=== PATIENT | female | born 1980 | race Caucasian/White ===

== ENCOUNTER 2016-08-18 20:55 | Emergency (ER) | payer OTHER ==
[~2016-08-18] VITALS: Ht 154.9 cm; Wt 74.8 kg
[~2016-08-18 20:55] MED LIST: ASPIRIN LOW DOS81 MG PO; BENADRYL25 MG PO; BENTYL10 MG PO; DOXYCYCL HYC100 MG PO; FERR SULFATE325 MG PO; FLEXERIL OR; FLEXERIL PO; FLONASE NASAL50 MCG; GLYBURIDE2.5 MG PO; KEFLEX500 M1 PO; LORTAB 5 OR; LORTAB 7.5-3251 TAB PO; LORTAB5 OR; MACRODANTIN100 MG PO; MEDDOSEPAK PO; METO25TAB PO; METOPROL TAR25 MG PO; MOTRIN800 MG PO; MOTRIN800 MG/TAB PO; NO HOME MEDS; PERCOCET 5/325M1 TAB OR; PERIDEX0.12 % MT; PRE-NATAL PO; PREDNISONE10 MG PO; PRENATAL VITAMIN PO; SPRINTEC 2828 DAY PO; TOPROL XL25 MG PO; TRAMADOL HCL50 MG PO; XANAX0.25 MG PO; ZOFRAN4 M1 PO; ZPAK PO
[2016-08-18 22:53] LABS: HEMATOCRIT 36.2 % (37.0-47.0); HEMOGLOBIN 11.1 g/dl (12.0-16.0); IMMATURE GRANULOCYTES 0.5 % (0.0-1.0); MEAN CELL VOLUME 79.2 fL CALC (80.0-100.0); MEAN CORPUSCULAR HGB 24.3 pG CALC (26.0-32.0); MEAN CORPUSCULAR HGB CONC 30.7 g/L CALC (32.0-36.0); NEUT# 6.82 thou/uL (2.00-7.15); RED BLOOD COUNT 4.57 mill/uL (4.20-5.60); RED CELL DISTRI WIDTH 15.6 % (11.5-15.5)
[2016-08-18 22:56] LABS: URINE BILIRUBIN - DIPSTICK NEGATIVE (NEGATIVE); URINE BLOOD DIPSTICK NEGATIVE (NEGATIVE); URINE CLARITY CLEAR; URINE COLOR YELLOW; URINE GLUCOSE - DIPSTICK NEGATIVE (NEGATIVE); URINE KETONE NEGATIVE (NEGATIVE); URINE LEUK ESTERASE NEGATIVE (NEGATIVE); URINE NITRITE - DIPSTICK NEGATIVE (Negative); URINE PROTEIN - DIPSTICK NEGATIVE (NEG-TRACE); URINE SPECIFIC GRAVITY >=1.030; URINE UROBILINOGEN - DIPSTICK 0.2 E.U./dL (0.2)
[2016-08-18 23:10] LABS: ALBUMIN 4.5 g/dL (3.2-5.0); ALKALINE PHOSPHATASE 61 u/l (38-126); ANION GAP 16 (6-22 (CALC)); BILIRUBIN, TOTAL 0.6 mg/dL (0.0-1.4); BUN 11 mg/dL (7-17); BUN/CREATININE RATIO 16 (12-20 (CALC)); CALCIUM 9.4 mg/dL (8.4-10.2); CARBON DIOXIDE 28 mmol/l (22-30); CHLORIDE 102 mmol/l (95-108); CREATININE 0.7 mg/dL (0.5-1.0); GFR > 60 ML/MIN (>=60 (CALC)); GFR FOR AFR.AMER. > 60 ML/MIN (>=60 (CALC)); GLUCOSE 108 mg/dL (65-105); POTASSIUM 3.7 mmol/l (3.5-5.1); SGOT/AST 11 u/l (14-36); SGPT/ALT 18 u/l (9-52); SODIUM 142 mmol/l (137-146); TOTAL PROTEIN 7.2 g/dL (6.3-8.2)
[2016-08-19] MEDS ORDERED: ORPHENADRINE100 MG PO (01:01)
[2016-08-19] MEDS ORDERED: TRAMADOL HYDROC50 MG PO (01:01)
[2016-08-19 01:27] VITALS: BP 141/91
== END 2016-08-19 01:30 | disposition home or self-care (01) | DRG 563 ==
LOC: ED 20:55
PROVIDERS: Emergency Medicine
DX: S39.012A Strain of muscle, fascia and tendon of lower back, initial encounter (principal); I10 Essential (primary) hypertension; F41.9 Anxiety disorder, unspecified; G89.29 Other chronic pain; M54.9 Dorsalgia, unspecified; X58.XXXA Exposure to other specified factors, initial encounter

== ENCOUNTER 2016-11-05 21:55 | Emergency (ER) | payer OTHER ==
[~2016-11-05] VITALS: Ht 154.9 cm; Wt 72.4 kg
[~2016-11-05 21:55] MED LIST changes: +ORPHENADRINE100 MG PO; +TRAMADOL HYDROC50 MG PO
[2016-11-05] MEDS ORDERED: BUSPAR10 M1 PO (22:09)
[2016-11-05] MEDS ORDERED: XANAX0.5 MG PO (22:10)
[2016-11-05 22:50] LABS: HEMATOCRIT 35.3 % (37.0-47.0); IMMATURE GRANULOCYTES 0.3 % (0.0-1.0); MEAN CELL VOLUME 78.3 fL CALC (80.0-100.0); MEAN CORPUSCULAR HGB 24.4 pG CALC (26.0-32.0); MEAN CORPUSCULAR HGB CONC 31.2 g/L CALC (32.0-36.0); NEUT# 5.3 thou/uL (2.00-7.15); RED BLOOD COUNT 4.51 mill/uL (4.20-5.60); RED CELL DISTRI WIDTH 15.9 % (11.5-15.5)
[2016-11-05 22:59] LABS: ALBUMIN 4.5 g/dL (3.2-5.0); ALKALINE PHOSPHATASE 70 u/l (38-126); AMYLASE 117 u/l (30-110); ANION GAP 16 (6-22 (CALC)); BILIRUBIN, TOTAL 0.5 mg/dL (0.0-1.4); BUN 13 mg/dL (7-17); BUN/CREATININE RATIO 18 (12-20 (CALC)); CARBON DIOXIDE 27 mmol/l (22-30); CHLORIDE 105 mmol/l (95-108); CREATININE 0.7 mg/dL (0.5-1.0); GFR > 60 ML/MIN (>=60 (CALC)); GFR FOR AFR.AMER. > 60 ML/MIN (>=60 (CALC)); GLUCOSE 104 mg/dL (65-105); LIPASE 245 u/l (23-300); POTASSIUM 3.6 mmol/l (3.5-5.1); SGOT/AST 20 u/l (14-36); SGPT/ALT 27 u/l (9-52); SODIUM 144 mmol/l (137-146); TOTAL PROTEIN 7.8 g/dL (6.3-8.2)
[2016-11-06 00:23] LABS: URINE BILIRUBIN - DIPSTICK NEGATIVE (NEGATIVE); URINE BLOOD DIPSTICK LARGE (NEGATIVE); URINE CLARITY SLIGHT CLOUDY; URINE COLOR YELLOW; URINE GLUCOSE - DIPSTICK NEGATIVE (NEGATIVE); URINE KETONE NEGATIVE (NEGATIVE); URINE LEUK ESTERASE NEGATIVE (NEGATIVE); URINE NITRITE - DIPSTICK NEGATIVE (Negative); URINE PROTEIN - DIPSTICK NEGATIVE (NEG-TRACE); URINE UROBILINOGEN - DIPSTICK 0.2 E.U./dL (0.2)
[2016-11-06 00:29] LABS: COCAINE NEGATIVE (NEGATIVE); METHADONE NEGATIVE (NEGATIVE); TETRAHYDROCANNABIONOL NEGATIVE (NEGATIVE)
[2016-11-06 00:30] LABS: BARBITURATES NEGATIVE (NEGATIVE); OXCYCODONE NEGATIVE (NEGATIVE); TRICYLIC ANTIDEPRESSANTS NEGATIVE (NEGATIVE)
[2016-11-06 00:32] LABS: URINE BACTERIA FEW hpf; URINE RBC 50-100 RBC/hpf (0-5); URINE SQUAMOUS EPITHELIAL CELL MODERATE EPI/hpf (0-FEW)
[2016-11-06] MEDS ORDERED: ZOFRAN ODT4 MG PO (00:38)
[2016-11-06 01:04] VITALS: BP 136/82
== END 2016-11-06 01:03 | disposition home or self-care (01) | DRG 392 ==
LOC: ED 21:55
PROVIDERS: Emergency Medicine
DX: R10.11 Right upper quadrant pain (principal); I10 Essential (primary) hypertension; R11.0 Nausea; G89.29 Other chronic pain; M54.9 Dorsalgia, unspecified; F41.9 Anxiety disorder, unspecified

== ENCOUNTER 2016-12-20 20:16 | Emergency (ER) | payer OTHER ==
[~2016-12-20] VITALS: Ht 154.9 cm; Wt 70.0 kg
[~2016-12-20 20:16] MED LIST changes: +BUSPAR10 M1 PO; +XANAX0.5 MG PO; +ZOFRAN ODT4 MG PO
[2016-12-20] MEDS ORDERED: FLEXERIL PO (22:15)
[2016-12-20] MEDS ORDERED: LORTAB 10-325 M1 TAB PO (22:15)
[2016-12-20 22:17] VITALS: BP 138/72
== END 2016-12-20 22:24 | disposition home or self-care (01) | DRG 552 ==
LOC: ED 20:16
DX: M51.17 Intervertebral disc disorders with radiculopathy, lumbosacral region (principal); W18.31XA Fall on same level due to stepping on an object, initial encounter; Y92.009 Unspecified place in unspecified non-institutional (private) residence as the place of occurrence of the external cause

== ENCOUNTER 2017-06-24 23:04 | Emergency (ER) | payer OTHER ==
[~2017-06-24] VITALS: Ht 154.9 cm; Wt 74.2 kg
[~2017-06-24 23:04] MED LIST changes: +LORTAB 10-325 M1 TAB PO
[2017-06-25 00:19] LABS: URINE BILIRUBIN - DIPSTICK NEGATIVE (NEGATIVE); URINE BLOOD DIPSTICK SMALL (NEGATIVE); URINE CLARITY SL CLOUDY; URINE COLOR YELLOW; URINE GLUCOSE - DIPSTICK NEGATIVE (NEGATIVE); URINE KETONE NEGATIVE (NEGATIVE); URINE LEUK ESTERASE NEGATIVE (NEGATIVE); URINE NITRITE - DIPSTICK NEGATIVE (Negative); URINE PROTEIN - DIPSTICK NEGATIVE (NEG-TRACE); URINE SPECIFIC GRAVITY >=1.030; URINE UROBILINOGEN - DIPSTICK 0.2 E.U./dL (0.2)
[2017-06-25 00:29] LABS: URINE BACTERIA FEW hpf; URINE MUCUS MODERATE hpf (NONE-FEW); URINE SQUAMOUS EPITHELIAL CELL MODERATE EPI/hpf (0-FEW)
[2017-06-25] MEDS ORDERED: ORPHENADRINE100 MG PO (01:53)
[2017-06-25] MEDS ORDERED: PERCOCET 5/325M1 TAB PO (01:53)
[2017-06-25 02:13] VITALS: BP 155/88
== END 2017-06-25 02:13 | disposition home or self-care (01) | DRG 552 ==
LOC: ED 23:04
PROVIDERS: Emergency Medicine
DX: M54.5 Low back pain (principal); M47.816 Spondylosis without myelopathy or radiculopathy, lumbar region; M54.6 Pain in thoracic spine; R05 Cough

== ENCOUNTER 2017-07-16 11:29 | Emergency (ER) | payer OTHER ==
[~2017-07-16] VITALS: Ht 154.9 cm; Wt 60.0 kg
[~2017-07-16 11:29] MED LIST changes: +PERCOCET 5/325M1 TAB PO
[2017-07-16] MEDS ORDERED: BENADRYL 25MG C25 MG PO (12:42)
[2017-07-16] MEDS ORDERED: MEDDOSEPAK PO (12:42)
[2017-07-16 12:57] VITALS: BP 136/61
== END 2017-07-16 12:56 | disposition home or self-care (01) | DRG 916 ==
LOC: ED 11:29
DX: T78.40XA Allergy, unspecified, initial encounter (principal); R21 Rash and other nonspecific skin eruption

== ENCOUNTER 2017-08-03 22:50 | Emergency (ER) | payer OTHER ==
[~2017-08-03] VITALS: Ht 154.9 cm; Wt 70.0 kg
[~2017-08-03 22:50] MED LIST changes: +BENADRYL 25MG C25 MG PO
[2017-08-03 23:36] LABS: HEMOGLOBIN 9.7 g/dl (12.0-16.0); IMMATURE GRANULOCYTES 0.2 % (0.0-1.0); MEAN CORPUSCULAR HGB 22.4 pG CALC (26.0-32.0); MEAN CORPUSCULAR HGB CONC 29.4 g/L CALC (32.0-36.0); NEUT# 5.79 thou/uL (2.00-7.15); RED BLOOD COUNT 4.34 mill/uL (4.20-5.60); RED CELL DISTRI WIDTH 16.2 % (11.5-15.5)
[2017-08-03 23:47] LABS: ALBUMIN 4.6 g/dL (3.2-5.0); ALKALINE PHOSPHATASE 74 u/l (38-126); ANION GAP 18 (6-22 (CALC)); BILIRUBIN, TOTAL 0.5 mg/dL (0.0-1.4); BUN 16 mg/dL (7-17); BUN/CREATININE RATIO 24 (12-20 (CALC)); CARBON DIOXIDE 26 mmol/l (22-30); CHLORIDE 101 mmol/l (95-108); CREATININE 0.6 mg/dL (0.5-1.0); GFR > 60 ML/MIN (>=60 (CALC)); GFR FOR AFR.AMER. > 60 ML/MIN (>=60 (CALC)); POTASSIUM 3.8 mmol/l (3.5-5.1); SGOT/AST 23 u/l (14-36); SGPT/ALT 29 u/l (9-52); SODIUM 142 mmol/l (137-146)
[2017-08-03 23:59] LABS: MYOGLOBIN 15 ng/mL (0 - 62)
[2017-08-04 05:10] VITALS: BP 136/80
[2017-08-04] MEDS ORDERED: FIORICET PO (14:04)
[2017-08-04] MEDS ORDERED: ZOFRAN4 MG/TAB PO (14:04)
== END 2017-08-04 05:20 | disposition home or self-care (01) | DRG 313 ==
LOC: ED 22:50
PROVIDERS: Emergency Medicine
DX: R07.9 Chest pain, unspecified (principal); Z82.49 Family history of ischemic heart disease and other diseases of the circulatory system

== ENCOUNTER 2017-08-04 11:04 | Emergency (ER) | payer OTHER ==
[~2017-08-04] VITALS: Ht 154.9 cm; Wt 70.0 kg
[2017-08-04] MEDS ORDERED: FIORICET PO (14:04)
[2017-08-04] MEDS ORDERED: ZOFRAN4 MG/TAB PO (14:04)
[2017-08-04 14:26] VITALS: BP 138/78
== END 2017-08-04 14:26 | disposition home or self-care (01) | DRG 103 ==
LOC: ED 11:04
DX: R51 Headache (principal); R11.10 Vomiting, unspecified

== ENCOUNTER 2018-01-31 19:15 | Emergency (ER) | payer OTHER ==
[~2018-01-31] VITALS: Ht 154.9 cm; Wt 71.0 kg
[~2018-01-31 19:15] MED LIST changes: +ASPIRIN 81 LOW81 MG PO; +FIORICET PO; +ZOFRAN4 MG/TAB PO
[2018-01-31 20:23] LABS: HEMATOCRIT 29.5 % (37.0-47.0); HEMOGLOBIN 8.6 g/dl (12.0-16.0); IMMATURE GRANULOCYTES 0.5 % (0.0-5.0); MEAN CORPUSCULAR HGB 21.3 pG CALC (26.0-32.0); MEAN CORPUSCULAR HGB CONC 29.2 g/L CALC (32.0-36.0); NEUT# 4.34 thou/uL (2.00-7.15); RED BLOOD COUNT 4.04 mill/uL (4.20-5.60)
[2018-01-31 20:25] LABS: URINE BILIRUBIN - DIPSTICK NEGATIVE (NEGATIVE); URINE BLOOD DIPSTICK NEGATIVE (NEGATIVE); URINE COLOR YELLOW; URINE GLUCOSE - DIPSTICK NEGATIVE (NEGATIVE); URINE KETONE NEGATIVE (NEGATIVE); URINE LEUK ESTERASE NEGATIVE (NEGATIVE); URINE NITRITE - DIPSTICK NEGATIVE (Negative); URINE PROTEIN - DIPSTICK NEGATIVE (NEG-TRACE); URINE SPECIFIC GRAVITY >=1.030
[2018-01-31 20:28] LABS: URINE CLARITY CLEAR
[2018-01-31 20:34] LABS: ALBUMIN 4.4 g/dL (3.2-5.0); ALKALINE PHOSPHATASE 67 u/l (38-126); ANION GAP 14 (6-22 (CALC)); BILIRUBIN, TOTAL 0.5 mg/dL (0.0-1.4); BUN 14 mg/dL (7-17); BUN/CREATININE RATIO 19 (12-20 (CALC)); CARBON DIOXIDE 22 mmol/l (22-30); CHLORIDE 110 mmol/l (95-108); CREATININE 0.8 mg/dL (0.5-1.0); GFR > 60 ML/MIN (>=60 (CALC)); GFR FOR AFR.AMER. > 60 ML/MIN (>=60 (CALC)); POTASSIUM 3.8 mmol/l (3.5-5.1); SGOT/AST 16 u/l (14-36); SODIUM 143 mmol/l (137-146); TOTAL PROTEIN 7.2 g/dL (6.3-8.2)
[2018-01-31] MEDS ORDERED: LORTAB 1010 MG PO (22:15)
[2018-01-31 22:43] VITALS: BP 139/86
== END 2018-01-31 22:43 | disposition home or self-care (01) ==
LOC: ED 19:15
PROVIDERS: Emergency Medicine
DX: R10.32 Left lower quadrant pain (principal); Z90.710 Acquired absence of both cervix and uterus; R30.0 Dysuria; R10.2 Pelvic and perineal pain
CPT/HCPCS: Q9967

== ENCOUNTER 2018-08-16 20:20 | Emergency (ER) | payer BC ==
[~2018-08-16] VITALS: Ht 154.9 cm; Wt 80.0 kg
[~2018-08-16 20:20] MED LIST changes: +LORTAB 1010 MG PO
[2018-08-16] MEDS ORDERED: HYDROCODONE/IBU1 TA3 PO (20:33)
[2018-08-16] MEDS ORDERED: BENADRYL 50MG C50 MG PO (21:04)
[2018-08-16 21:27] VITALS: BP 163/90
== END 2018-08-16 21:28 | disposition home or self-care (01) | DRG 607 ==
LOC: ED 20:20
DX: L50.9 Urticaria, unspecified (principal)

== ENCOUNTER 2018-09-20 01:40 | Emergency (ER) | payer BC ==
[~2018-09-20] VITALS: Ht 154.9 cm; Wt 74.0 kg
[~2018-09-20 01:40] MED LIST changes: +BENADRYL 50MG C50 MG PO; +HYDROCODONE/IBU1 TA3 PO
[2018-09-20 02:37] LABS: HEMATOCRIT 32.9 % (37.0-47.0); HEMOGLOBIN 9.9 g/dl (12.0-16.0); IMMATURE GRANULOCYTES 0.3 % (0.0-5.0); MEAN CELL VOLUME 76.9 fL CALC (80.0-100.0); MEAN CORPUSCULAR HGB 23.1 pG CALC (26.0-32.0); MEAN CORPUSCULAR HGB CONC 30.1 g/L CALC (32.0-36.0); NEUT# 3.78 thou/uL (2.00-7.15); RED BLOOD COUNT 4.28 mill/uL (4.20-5.60); RED CELL DISTRI WIDTH 16.6 % (11.5-15.5)
[2018-09-20 02:56] LABS: ALBUMIN 4.2 g/dL (3.2-5.0); ALKALINE PHOSPHATASE 61 u/l (38-126); AMYLASE 114 u/l (30-110); ANION GAP 12 (6-22 (CALC)); BILIRUBIN, TOTAL 0.4 mg/dL (0.0-1.4); BUN 17 mg/dL (7-17); BUN/CREATININE RATIO 23 (12-20 (CALC)); CHLORIDE 107 mmol/l (95-108); CREATININE 0.8 mg/dL (0.5-1.0); GFR > 60 ML/MIN (>=60 (CALC)); GFR FOR AFR.AMER. > 60 ML/MIN (>=60 (CALC)); LIPASE 408 u/l (23-300); POTASSIUM 3.8 mmol/l (3.5-5.1); SGOT/AST 15 u/l (14-36); SODIUM 142 mmol/l (137-146); TOTAL PROTEIN 6.7 g/dL (6.3-8.2)
[2018-09-20 02:57] LABS: D-DIMER 0.97 mg/L (0.19-0.60); INTERNATIONAL NORMALIZED RATIO 0.9 RATIO (0.7-1.3); PROTHROMBIN TIME 9.9 SECONDS (9.0-12.5)
[2018-09-20 03:08] LABS: MYOGLOBIN 19 ng/mL (0 - 62)
[2018-09-20 03:09] LABS: CARBON DIOXIDE 27 mmol/l (22-30)
[2018-09-20 06:30] VITALS: BP 127/74
== END 2018-09-20 06:30 | disposition home or self-care (01) | DRG 310 ==
LOC: ED 01:40
PROVIDERS: Family Medicine
DX: R00.2 Palpitations (principal); R07.9 Chest pain, unspecified; R06.00 Dyspnea, unspecified; I10 Essential (primary) hypertension
CPT/HCPCS: J2060; Q9967

== ENCOUNTER 2018-10-05 14:05 | Emergency (ER) | payer BC ==
[~2018-10-05] VITALS: Ht 154.9 cm; Wt 78.0 kg
[2018-10-05 15:10] LABS: HEMATOCRIT 35.9 % (37.0-47.0); IMMATURE GRANULOCYTES 0.3 % (0.0-5.0); MEAN CELL VOLUME 76.5 fL CALC (80.0-100.0); MEAN CORPUSCULAR HGB 23.5 pG CALC (26.0-32.0); MEAN CORPUSCULAR HGB CONC 30.6 g/L CALC (32.0-36.0); NEUT# 4.5 thou/uL (2.00-7.15); RED BLOOD COUNT 4.69 mill/uL (4.20-5.60); RED CELL DISTRI WIDTH 16.4 % (11.5-15.5)
[2018-10-05 15:21] LABS: ALBUMIN 4.5 g/dL (3.2-5.0); ALKALINE PHOSPHATASE 75 u/l (38-126); ANION GAP 15 (6-22 (CALC)); BUN 15 mg/dL (7-17); BUN/CREATININE RATIO 24 (12-20 (CALC)); CARBON DIOXIDE 25 mmol/l (22-30); CHLORIDE 103 mmol/l (95-108); CREATININE 0.6 mg/dL (0.5-1.0); GFR > 60 ML/MIN (>=60 (CALC)); GFR FOR AFR.AMER. > 60 ML/MIN (>=60 (CALC)); POTASSIUM 3.7 mmol/l (3.5-5.1); SGOT/AST 15 u/l (14-36); SODIUM 139 mmol/l (137-146); TOTAL PROTEIN 7.5 g/dL (6.3-8.2)
[2018-10-05 15:30] LABS: BILIRUBIN, TOTAL 0.6 mg/dL (0.0-1.4)
[2018-10-05 16:05] LABS: AMYLASE 118 u/l (30-110); LIPASE 317 u/l (23-300)
[2018-10-05 17:15] LABS: URINE BILIRUBIN - DIPSTICK NEGATIVE (NEGATIVE); URINE BLOOD DIPSTICK NEGATIVE (NEGATIVE); URINE COLOR YELLOW; URINE GLUCOSE - DIPSTICK NEGATIVE (NEGATIVE); URINE KETONE NEGATIVE (NEGATIVE); URINE LEUK ESTERASE NEGATIVE (NEGATIVE); URINE NITRITE - DIPSTICK NEGATIVE (Negative); URINE PH 6.5 (4.5-8.0); URINE PROTEIN - DIPSTICK NEGATIVE (NEG-TRACE); URINE SPECIFIC GRAVITY <=1.005; URINE UROBILINOGEN - DIPSTICK 0.2 E.U./dL (0.2)
[2018-10-05] MEDS ORDERED: ZOFRAN4 MG PO (18:05)
[2018-10-05 18:24] VITALS: BP 112/65
== END 2018-10-05 18:20 | disposition home or self-care (01) | DRG 816 ==
LOC: ED 14:05
PROVIDERS: Emergency Medicine
DX: R16.1 Splenomegaly, not elsewhere classified (principal); N83.202 Unspecified ovarian cyst, left side
CPT/HCPCS: Q9967

== ENCOUNTER 2018-10-18 18:02 | Emergency (ER) | payer BC ==
[~2018-10-18] VITALS: Ht 154.9 cm; Wt 72.8 kg
[~2018-10-18 18:02] MED LIST changes: +ZOFRAN4 MG PO
[2018-10-18] MEDS ORDERED: DOXYCYCL HYC100 MG PO (19:18)
[2018-10-18 20:04] VITALS: BP 167/80
== END 2018-10-18 20:04 | disposition home or self-care (01) | DRG 605 ==
LOC: ED 18:02
DX: S30.870A Other superficial bite of lower back and pelvis, initial encounter (principal); W54.0XXA Bitten by dog, initial encounter; Y93.89 Activity, other specified; Y92.007 Garden or yard of unspecified non-institutional (private) residence as the place of occurrence of the external cause

== ENCOUNTER 2019-10-14 15:17 | Emergency (ER) | payer BC ==
[~2019-10-14] VITALS: Ht 154.9 cm; Wt 72.0 kg
[2019-10-14] MEDS ORDERED: LORTAB 1010 MG PO (15:36)
[2019-10-14 16:50] VITALS: BP 149/79
--- NOTE | 2019-10-17 10:35 | NUR ---
Notified patient of positive Covid results. Advised patient to quarantine until contacted by the [facility] with further instructions. Patient denies difficulty breathing at this time. Advised patient to return to ED with difficulty breathing or other urgent needs. Patient verbalized understanding.
== END 2019-10-14 16:50 | disposition home or self-care (01) | DRG 179 ==
LOC: ED 15:17
DX: U07.1 COVID-19 (principal); I10 Essential (primary) hypertension

== ENCOUNTER 2020-05-25 20:08 | Emergency (ER) | payer SELFPAY ==
[~2020-05-25] VITALS: Ht 157.5 cm; Wt 73.0 kg
[2020-05-25 21:36] LABS: HEMATOCRIT 37.6 % (37.0-47.0); HEMOGLOBIN 12.1 g/dl (12.0-16.0); IMMATURE GRANULOCYTES 0.3 % (0.0-5.0); MEAN CELL VOLUME 84.9 fL CALC (80.0-100.0); MEAN CORPUSCULAR HGB 27.3 pG CALC (26.0-32.0); MEAN CORPUSCULAR HGB CONC 32.2 g/dL CAL (32.0-36.0); NEUT# 8.97 thou/uL (2.00-7.15); RED BLOOD COUNT 4.43 mill/uL (4.20-5.60); RED CELL DISTRI WIDTH 13.5 % (11.5-15.5)
[2020-05-25 21:56] LABS: ALBUMIN 4.9 g/dL (3.2-5.0); ALKALINE PHOSPHATASE 65 u/l (38-126); ANION GAP 15 (6-22 (CALC)); BILIRUBIN, TOTAL 0.7 mg/dL (0.0-1.4); BUN 15 mg/dL (7-17); BUN/CREATININE RATIO 24 (12-20 (CALC)); CARBON DIOXIDE 24 mmol/l (22-30); CHLORIDE 101 mmol/l (95-108); CREATININE 0.6 mg/dL (0.5-1.0); GFR > 60 ML/MIN (>=60 (CALC)); GFR FOR AFR.AMER. > 60 ML/MIN (>=60 (CALC)); MAGNESIUM 2.1 mg/dL (1.6-2.3); POTASSIUM 3.1 mmol/l (3.5-5.1); SGOT/AST 16 u/l (14-36); SODIUM 137 mmol/l (137-146); TOTAL PROTEIN 8.4 g/dL (6.3-8.2)
[2020-05-25 21:57] LABS: ACT PARTIAL THROMBO TIME 21.8 SECONDS (20.0-32.5); INTERNATIONAL NORMALIZED RATIO 0.9 RATIO (0.7-1.3); PROTHROMBIN TIME 9.6 SECONDS (9.0-12.5)
[2020-05-25 22:04] LABS: D-DIMER 0.29 mg/L (0.19-0.60)
[2020-05-25 22:08] LABS: MYOGLOBIN 14 ng/mL (0 - 62)
[2020-05-26] MEDS ORDERED: METOPROL TAR100 MG PO (00:19)
[2020-05-26 00:43] VITALS: BP 128/73
== END 2020-05-26 01:04 | disposition home or self-care (01) | DRG 305 ==
LOC: ED 20:08
PROVIDERS: Family Medicine
DX: I10 Essential (primary) hypertension (principal)

== ENCOUNTER 2020-09-01 21:38 | Emergency (ER) | payer OTHER ==
[~2020-09-01] VITALS: Ht 157.5 cm; Wt 73.0 kg
[~2020-09-01 21:38] MED LIST changes: +METOPROL TAR100 MG PO
[2020-09-01] MEDS ORDERED: LISINOP/HCTZ1 TA2 PO (22:10)
[2020-09-01 22:41] LABS: HEMATOCRIT 38.1 % (37.0-47.0); HEMOGLOBIN 12.1 g/dl (12.0-16.0); IMMATURE GRANULOCYTES 0.3 % (0.0-5.0); MEAN CELL VOLUME 85.6 fL CALC (80.0-100.0); MEAN CORPUSCULAR HGB 27.2 pG CALC (26.0-32.0); MEAN CORPUSCULAR HGB CONC 31.8 g/dL CAL (32.0-36.0); NEUT# 6.52 thou/uL (2.00-7.15); RED BLOOD COUNT 4.45 mill/uL (4.20-5.60); RED CELL DISTRI WIDTH 14.3 % (11.5-15.5)
[2020-09-01 22:55] LABS: ALBUMIN 4.2 g/dL (3.2-5.0); ALKALINE PHOSPHATASE 49 u/l (38-126); ANION GAP 12 (6-22 (CALC)); BILIRUBIN, TOTAL 0.6 mg/dL (0.0-1.4); BUN 17 mg/dL (7-17); BUN/CREATININE RATIO 19 (12-20 (CALC)); CARBON DIOXIDE 26 mmol/l (22-30); CHLORIDE 101 mmol/l (95-108); CREATININE 0.9 mg/dL (0.5-1.0); GFR > 60 ML/MIN (>=60 (CALC)); GFR FOR AFR.AMER. > 60 ML/MIN (>=60 (CALC)); POTASSIUM 3.2 mmol/l (3.5-5.1); SGOT/AST 16 u/l (14-36); SODIUM 136 mmol/l (137-146); TOTAL PROTEIN 7.3 g/dL (6.3-8.2)
[2020-09-01 23:08] LABS: MYOGLOBIN 13 ng/mL (0 - 62)
[2020-09-01 23:26] LABS: TSH, 3RD GENERATION 2.57 uIU/mL (0.47 - 4.68)
[2020-09-02 00:20] LABS: URINE BILIRUBIN - DIPSTICK NEGATIVE (NEGATIVE); URINE BLOOD DIPSTICK NEGATIVE (NEGATIVE); URINE COLOR YELLOW; URINE GLUCOSE - DIPSTICK NEGATIVE (NEGATIVE); URINE KETONE NEGATIVE (NEGATIVE); URINE LEUK ESTERASE NEGATIVE (NEGATIVE); URINE NITRITE - DIPSTICK NEGATIVE (Negative); URINE PH 5.5 (4.5-8.0); URINE PROTEIN - DIPSTICK NEGATIVE (NEG-TRACE); URINE SPECIFIC GRAVITY >=1.030; URINE UROBILINOGEN - DIPSTICK 0.2 E.U./dL (0.2)
[2020-09-02 00:37] VITALS: BP 111/66
== END 2020-09-02 00:49 | disposition home or self-care (01) ==
LOC: ED 21:38
PROVIDERS: Emergency Medicine
DX: R00.2 Palpitations (principal); I10 Essential (primary) hypertension; M06.9 Rheumatoid arthritis, unspecified; M54.9 Dorsalgia, unspecified; G89.29 Other chronic pain

== ENCOUNTER 2020-12-03 15:12 | Emergency (ER) | payer OTHER ==
[~2020-12-03] VITALS: Ht 157.5 cm; Wt 80.0 kg
[~2020-12-03 15:12] MED LIST changes: +LISINOP/HCTZ1 TA2 PO
[2020-12-03 16:59] LABS: URINE BILIRUBIN - DIPSTICK NEGATIVE (NEGATIVE); URINE BLOOD DIPSTICK NEGATIVE (NEGATIVE); URINE COLOR YELLOW; URINE GLUCOSE - DIPSTICK NEGATIVE (NEGATIVE); URINE KETONE NEGATIVE (NEGATIVE); URINE LEUK ESTERASE NEGATIVE (NEGATIVE); URINE PROTEIN - DIPSTICK NEGATIVE (NEG-TRACE); URINE UROBILINOGEN - DIPSTICK 0.2 E.U./dL (0.2)
[2020-12-03 17:03] LABS: URINE NITRITE - DIPSTICK NEGATIVE (Negative)
[2020-12-03 17:43] LABS: HEMATOCRIT 35.3 % (37.0-47.0); HEMOGLOBIN 11.4 g/dl (12.0-16.0); IMMATURE GRANULOCYTES 0.1 % (0.0-5.0); MEAN CELL VOLUME 88.5 fL CALC (80.0-100.0); MEAN CORPUSCULAR HGB 28.6 pG CALC (26.0-32.0); MEAN CORPUSCULAR HGB CONC 32.3 g/dL CAL (32.0-36.0); NEUT# 6.86 thou/uL (2.00-7.15); RED BLOOD COUNT 3.99 mill/uL (4.20-5.60)
[2020-12-03 17:51] LABS: ALBUMIN 4.2 g/dL (3.2-5.0); ALKALINE PHOSPHATASE 48 u/l (38-126); ANION GAP 12 (6-22 (CALC)); BILIRUBIN, TOTAL 0.5 mg/dL (0.0-1.4); BUN 11 mg/dL (7-17); BUN/CREATININE RATIO 18 (12-20 (CALC)); CARBON DIOXIDE 26 mmol/l (22-30); CHLORIDE 102 mmol/l (95-108); CREATININE 0.6 mg/dL (0.5-1.0); GFR > 60 ML/MIN (>=60 (CALC)); GFR FOR AFR.AMER. > 60 ML/MIN (>=60 (CALC)); SGOT/AST 20 u/l (14-36); SODIUM 136 mmol/l (137-146); TOTAL PROTEIN 7.2 g/dL (6.3-8.2)
[2020-12-03 17:57] LABS: POTASSIUM 3.9 mmol/l (3.5-5.1)
[2020-12-03 19:07] VITALS: BP 171/109
[2020-12-03] MEDS ORDERED: ZPAK PO (19:12)
== END 2020-12-03 19:33 | disposition home or self-care (01) ==
LOC: ED 15:12
PROVIDERS: Physician Assistant Surgical
DX: R00.2 Palpitations (principal); I10 Essential (primary) hypertension; M06.9 Rheumatoid arthritis, unspecified
CPT/HCPCS: Q9967

== ENCOUNTER 2022-08-15 20:05 | Emergency (ER) | payer OTHER ==
[~2022-08-15] VITALS: Ht 154.9 cm; Wt 77.1 kg
[2022-08-15] VITALS (12 sets, daily range): BP systolic 100–135; BP diastolic 57–85
[~2022-08-15 20:05] MED LIST changes: +ALENDRONATE SOD70 MG PO; +ALLEGRA-D 2424 HOUR PO; +AMOX/K CLAV875 M1 PO; +ATENOLOL100 MG PO; +AZITHROMYCIN500 MG PO; +B-121000 MC6 PO; +DIFLUCAN150 MG PO; +DOXYCYCLINE100 MG PO; +FLONASE AL50 MCG/ACT NAB; +FOLIC ACID1 M1 PO; +HYDROXYZ HCL25 MG PO; +LEXAPRO10 MG PO; +LEXAPRO20 MG PO; +LISINOP/HCTZ1 TAB PO; +METRONIDAZOLE500 MG PO; +PREDNISONE20 MG PO; +TESSALON PERLE100 MG PO; +TREXALL7.5 MG PO; +VALTREX1 GM PO; +VITAMIN DE1000 MCG/M IM
[2022-08-15] MEDS ORDERED: PREDNISONE20 MG PO (21:18)
[2022-08-15] MEDS ORDERED: LORTAB 1010 MG PO (21:20)
[2022-08-15 21:21] LABS: BASO% 0.3 % (0-3); EOS% 0.5 % (0-8); HEMATOCRIT 33.3 % (37.0-47.0); HEMOGLOBIN 10.3 g/dl (12.0-16.0); IMMATURE GRANULOCYTES 0.2 % (0.0-5.0); LYMPH% 26.8 % (15-41); MEAN CELL VOLUME 85.4 fL CALC (80.0-100.0); MEAN CORPUSCULAR HGB 26.4 pG CALC (26.0-32.0); MEAN CORPUSCULAR HGB CONC 30.9 g/dL CAL (32.0-36.0); MONO% 12.4 % (2-13); NEUT# 3.82 thou/uL (2.00-7.15); NEUT% 59.8 % (42-76); RED BLOOD COUNT 3.9 mill/uL (4.20-5.60); RED CELL DISTRI WIDTH 13.9 % (11.5-15.5)
[2022-08-15 21:32] LABS: ALKALINE PHOSPHATASE 53 u/l (38-126); ANION GAP 9 (6-22 (CALC)); BILIRUBIN, TOTAL 0.6 mg/dL (0.02-1.3); BUN 12 mg/dL (7-17); BUN/CREATININE RATIO 16 (12-20 (CALC)); CARBON DIOXIDE 26 mmol/l (22-30); CHLORIDE 105 mmol/l (95-108); CREATININE 0.7 mg/dL (0.5-1.0); GFR FOR AFR.AMER. > 60 ML/MIN (>=60 (CALC)); GFR OTHER RACES > 60 ML/MIN (>=60 (CALC)); POTASSIUM 4.1 mmol/l (3.5-5.1); SGOT/AST 21 u/l (14-36); SODIUM 135 mmol/l (137-146); TOTAL PROTEIN 6.6 g/dL (6.3-8.2)
[2022-08-15 21:58] LABS: URINE BILIRUBIN - DIPSTICK NEGATIVE (NEGATIVE); URINE BLOOD DIPSTICK NEGATIVE (NEGATIVE); URINE COLOR YELLOW; URINE GLUCOSE - DIPSTICK NEGATIVE (NEGATIVE); URINE KETONE NEGATIVE (NEGATIVE); URINE LEUK ESTERASE NEGATIVE (NEGATIVE); URINE PROTEIN - DIPSTICK NEGATIVE (NEG-TRACE); URINE SPECIFIC GRAVITY 1.015; URINE UROBILINOGEN - DIPSTICK 0.2 E.U./dL (0.2)
[2022-08-15 21:59] LABS: URINE NITRITE - DIPSTICK NEGATIVE (Negative)
[2022-08-15] MEDS ORDERED: TAM75CAP PO (22:55)
[2022-08-15] MEDS ORDERED: FLOXIN OTIC0.3 % AD (23:00)
[2022-08-15] MEDS ORDERED: CIPROFLOXACN500 MG PO (23:00)
== END 2022-08-15 23:13 | disposition home or self-care (01) ==
LOC: ED 20:05
PROVIDERS: Emergency Medicine
DX: J11.1 Influenza due to unidentified influenza virus with other respiratory manifestations (principal); H66.91 Otitis media, unspecified, right ear; M06.9 Rheumatoid arthritis, unspecified; I10 Essential (primary) hypertension; Z20.822 Contact with and (suspected) exposure to COVID-19